=== PATIENT | male | born 1950 | race Caucasian/White ===

== ENCOUNTER 2017-06-27 11:56 | Emergency (ER) | payer BC ==
[2017-06-27 13:05] LABS: BASOPHIL % 0.2 % (0-2); PLATELET COUNT 247 x10^3mcL (130-400); RED CELL DISTRIBUTION WIDTH 13.8 % (11.5-14.5)
[2017-06-27 13:17] LABS: CALCIUM 9.6 mg/dL (8.5-10.1); CARBON DIOXIDE 29.5 mmol/L (21-32); CHLORIDE SERUM 106 mmol/L (98-107); CREATININE SERUM 0.9 mg/dL (0.7-1.3); GFR1 > 60 mL/min; GLUCOSE SERUM 98 mg/dL (74-106); POTASSIUM SERUM 4.2 mmol/L (3.5-5.1); SODIUM SERUM 143 mmol/L (136-145)
[2017-06-27 13:22] LABS: ALBUMIN 3.7 g/dL (3.4-5.0); ALKALINE PHOSPHATASE 80 U/L (46-116); ALT/SGPT 28 U/L (16-63); AST/SGOT 25 U/L (15-37); BILIRUBIN TOTAL 1.1 mg/dL (0.20-1.00)
[2017-06-27 14:15] VITALS: BP 145/67
== END 2017-06-27 14:15 | disposition home or self-care (01) ==
LOC: ED 11:56
PROVIDERS: Emergency Medicine
DX: R53.81 Other malaise (principal); I10 Essential (primary) hypertension
CPT/HCPCS: J7030